=== PATIENT | male | born 1985 | race African-American/Black ===

== ENCOUNTER 2025-02-21 13:35 | Inpatient (IN) | payer MEDICAID ==
[~2025-02-21] VITALS: Ht 175.3 cm; Wt 88.3 kg
[2025-02-21] MEDS: HALOPERIDOL LACTATE 5 MG/ML VIAL IM ONE (14:50)
[2025-02-21] MEDS: LORazepam 2 MG/ML VIAL IM ONE (14:50)
[2025-02-21] MEDS: DiphenhydrAMINE HCL 50 MG/ML VIAL IM ONE (14:50)
[2025-02-21] MEDS ORDERED: LORazepam 2 MG TABLET PO PRN (16:00)
[2025-02-21] MEDS ORDERED: HALOPERIDOL 5 MG TABLET PO PRN (16:00)
[2025-02-21] MEDS ORDERED: ZOLPIDEM TARTRATE 10 MG TABLET PO PRN (16:00)
[2025-02-21 19:15] VITALS: O2SAT 98
[2025-02-21 20:48] LABS: COVID AG,FIA SOURCE NASAL SWAB
[2025-02-21 21:15] LABS: SARS-COV2 (COVID) ANTIGEN,FIA Negative (Negative)
[2025-02-21 23:30] VITALS: RESP 18
[2025-02-22] MEDS: RisperiDONE 2 MG TABLET PO SCH (12:03)
[2025-02-22 13:34] VITALS: RESP 18
[2025-02-22 22:58] VITALS: RESP 18
[2025-02-23] MEDS: DiphenhydrAMINE HCL 50 MG/ML VIAL IM ONE (11:18)
[2025-02-23] MEDS: LORazepam 2 MG/ML VIAL IM ONE (11:23)
[2025-02-23] MEDS: HALOPERIDOL LACTATE 5 MG/ML VIAL IM ONE (11:23)
[2025-02-23] MEDS ORDERED: ACETAMINOPHEN 325 MG TABLET PO PRN (14:15)
[2025-02-23] MEDS ORDERED: MAGNESIUM HYDROXIDE SUSPENSION 30 ML UDCUP PO PRN (14:15)
[2025-02-23] MEDS ORDERED: PETROLATUM,WHITE 28 GM JELLY TP PRN (14:15)
[2025-02-23] MEDS ORDERED: NICOTINE 14 MG/24 HOUR PATCH TD PRN (14:15)
[2025-02-23] MEDS ORDERED: ONDANSETRON 4 MG TABLET PO PRN (14:15)
[2025-02-23] MEDS ORDERED: DOCUSATE SODIUM 100 MG CAPSULE PO PRN (14:15)
[2025-02-23] MEDS ORDERED: ALBUTEROL SULFATE HFA 90 MCG/PUFF 8 GM INHALER IH PRN (14:15)
[2025-02-23] MEDS ORDERED: GuaiFENesin/D-METHORPHAN [SUGAR-FREE] 200-20MG/10 ML SYRUP UDCUP PO PRN (14:15)
[2025-02-23] MEDS ORDERED: IBUPROFEN 400 MG TABLET PO PRN (14:15)
[2025-02-23] MEDS ORDERED: CloNIDine HCL 0.1 MG TABLET PO PRN (14:15)
[2025-02-23] MEDS ORDERED: MAG HYDROX/ALUMINUM HYD/SIMETH ES 30 ML SUSPENSION UDCUP PO PRN (14:15)
[2025-02-23] MEDS ORDERED: LOPERAMIDE HCL 2 MG CAPSULE PO PRN (14:15)
[2025-02-23 14:36] VITALS: RESP 18
[2025-02-23 21:21] VITALS: RESP 18
[2025-02-24 08:11] LABS: BASOPHILS % (AUTO) 0.4 % (0.0-2.0); EOSINOPHILS % (AUTO) 0.5 % (1.0-6.0); HEMOGLOBIN 17.2 g/dL (13.5-17.5); LYMPHOCYTES # (AUTO) 1.9 K/uL (1.0-4.8); LYMPHOCYTES % (AUTO) 26.2 % (22.0-44.0); MEAN CORPUSCULAR HEMOGLOBIN 30.8 pg (26.0-34.0); MEAN CORPUSCULAR HGB CONC 33.1 G/dL (31.0-37.0); MEAN CORPUSCULAR VOLUME 93 fL (80-100); MONOCYTES # (AUTO) 0.6 K/uL (0.1-1.0); MONOCYTES % (AUTO) 8.8 % (2.0-9.0); NEUTROPHILS # (AUTO) 4.7 K/uL (1.8-7.7); NEUTROPHILS % (AUTO) 64.1 % (40.0-70.0); PLATELET COUNT (AUTO) 226 K/uL (150-450); RED BLOOD CELL COUNT(AUTO) 5.59 MIL/uL (4.50-5.90); RED CELL DISTRIBUTION WIDTH 13.4 % (11.5-14.5); WHITE BLOOD COUNT (AUTO) 7.3 K/uL (4.5-11.0)
[2025-02-24 08:18] VITALS: BP 132/108; PULSE 69; RESP 18; TEMP 97.7
[2025-02-24 08:32] LABS: HEMOGLOBIN A1C 5.4 % (3.8-5.6)
[2025-02-24 08:41] LABS: ALANINE AMINOTRANSFERASE 21 U/L (12-78); ALBUMIN 3.5 g/dL (3.4-5.0); ALKALINE PHOSPHATASE 77 U/L (46-116); ANION GAP 5 mmol/L (8-16); ASPARTATE AMINOTRANSFERASE 40 U/L (15-37); BILIRUBIN,TOTAL 0.7 mg/dL (0.1-1.0); CALCIUM, TOTAL 9.3 mg/dL (8.8-10.5); CARBON DIOXIDE 31 mmol/L (22-29); CHLORIDE 100 mmol/L (98-107); CHOL/HDL RATIO 3.5 (4.2-7.3); CHOLESTEROL 148 mg/dL (131-200); CREATININE 1.36 mg/dL (0.60-1.30); GLOMERULAR FILTR. RATE CALC > 60 mL/min (>60); GLUCOSE,RANDOM 101 mg/dL (70-110); HDL CHOLESTEROL 42 mg/dL (40-60); LDL CHOL (CALC.) 87 mg/dL (0-130); POTASSIUM 5.2 mmol/L (3.5-5.1); SODIUM SERUM 136 mmol/L (136-145); THYROID STIMULATING HORMONE 0.53 uIU/mL (0.36-3.74); TOTAL PROTEIN, SERUM 7.7 g/dL (6.4-8.2); TRIGLYCERIDES 95 mg/dL (15-150); UREA NITROGEN, BLOOD 13 mg/dL (7-18)
[2025-02-24] MEDS: SODIUM POLYSTYRENE SULFONATE 15 GM/60 ML SUSPENSION BOTTLE PO ONE (11:18)
[2025-02-24] MEDS ORDERED: RISP-32 PO (16:32)
== END 2025-02-24 13:07 | disposition home or self-care (01) | DRG 750 ==
LOC: EMS 13:35 → 3EC 21:40 → EMS 21:46
PROVIDERS: ADMIT Psychiatry & Neurology Psychiatry; ATTEND Psychiatry & Neurology Psychiatry
PROC: GZHZZZZ Group Psychotherapy (ICD-10-PCS; principal; 2025-02-22)
PROC: GZ52ZZZ Individual Psychotherapy, Cognitive (ICD-10-PCS; 2025-02-22)
DX: F25.0 Schizoaffective disorder, bipolar type (principal); F15.10 Other stimulant abuse, uncomplicated; Z20.822 Contact with and (suspected) exposure to COVID-19; R03.0 Elevated blood-pressure reading, without diagnosis of hypertension; F41.9 Anxiety disorder, unspecified; G47.00 Insomnia, unspecified; Z79.899 Other long term (current) drug therapy
CPT/HCPCS: 80053; 80061; 83036; 84443; 85025; 96372; 99291; J1200; J1630; J2060